=== PATIENT | female | born 1965 | race Hispanic/Latino ===

== ENCOUNTER 2021-01-21 17:35 | Inpatient (IN) | payer SELFPAY ==
[~2021-01-21] VITALS: Ht 152.4 cm; Wt 63.5 kg
[2021-01-21] MEDS ORDERED: ONDANSETRON ODT 4 MG TAB ONE (17:55)
[2021-01-21 18:03] LABS: APPEARANCE,URINE Clear (CLEAR); BILIRUBIN,URINE Negative (NEGATIVE); COLOR,URINE Yellow (YELLOW); GLUCOSE, URINE (UA) Negative (NEGATIVE); KETONES,URINE Negative (NEGATIVE); LEUKOCYTE ESTERASE ,URINE Trace (NEGATIVE); NITRATE,URINE Negative (NEGATIVE); OCCULT BLOOD,URINE Negative (NEGATIVE); PH,URINE 5.5 (5.0-8.0); PROTEIN,URINE Negative (NEGATIVE)
[2021-01-21 18:05] LABS: BASOPHILS % (AUTO) 0.2 % (0.0-5.0); HEMATOCRIT 45.2 % (36-48); LYMPHOCYTES % (AUTO) 8.2 % (21.0-51.0); MEAN CORPUSCULAR HEMOGLOBIN 29.4 pg (27.0-33.0); MEAN CORPUSCULAR HGB CONC 33.4 g/dL (32.0-36.0); MEAN CORPUSCULAR VOLUME 87.9 fL (79-99); MONOCYTES % (AUTO) 5.5 % (3.0-13.0); NEUTROPHILS % (AUTO) 85.5 % (40.0-77.0); PLATELET COUNT (AUTO) 271 K/uL (130-400); RED BLOOD CELL COUNT(AUTO) 5.14 MIL/uL (4.00-5.50); RED CELL DISTRIBUTION WIDTH 13.4 % (11.0-15.5); WHITE BLOOD COUNT (AUTO) 20.1 K/uL (4.8-10.8)
[2021-01-21 18:11] LABS: BACTERIA,URINE Rare /HPF (None Seen); RBC,URINE 0-1 /HPF (0-1); SQUAMOUS EPITHELIAL CELL,UR Few /HPF (0-2)
[2021-01-21 18:12] LABS: MUCUS,URINE Rare LPF (None Seen)
[2021-01-21 18:16] LABS: CREATININE 0.9 mg/dL (0.5-1.5); POTASSIUM 3.6 mmol/L (3.5-5.1)
[2021-01-21 18:20] LABS: ALBUMIN 3.9 g/dL (3.5-5.0); BILIRUBIN,TOTAL 0.9 mg/dL (0.2-1.0); TOTAL PROTEIN, SERUM 8.2 g/dL (6.0-8.3)
[2021-01-21] MEDS ORDERED: KETOROLAC TROMETHAMINE 30MG/ML ONE (18:31)
[2021-01-21] MEDS ORDERED: LACTATED RINGERS 1000ML 1,000 ML IV ONE (18:51)
[2021-01-21] MEDS ORDERED: ZOSYN 3.375GM+NS 50ML 50 ML IV ONE (18:51)
[2021-01-21] MEDS ORDERED: FENTANYL CITRATE PF 50 MCG/1 ML 2ML VIAL ONE (20:17)
[2021-01-22] VITALS (7 sets, daily range): BP systolic 133–153; BP diastolic 68–95
[2021-01-22] MEDS: SODIUM CHLORIDE 0.9% 1000ML 1,000 ML IV SCH ×3 (01:20→18:37)
[2021-01-22] MEDS: ONDANSETRON HCL 4 MG/2 ML VIAL IV PRN ×2 (01:49→08:47)
[2021-01-22] MEDS: MEPERIDINE-PF 25 MG/ML SYG IV PRN ×3 (01:50→18:09)
[2021-01-22] MEDS: ZOSYN 3.375GM+NS 50ML 50 ML IV SCH ×3 (03:05→18:08)
[2021-01-22 05:35] LABS: BASOPHILS % (AUTO) 0.2 % (0.0-5.0); HEMATOCRIT 41.4 % (36-48); LYMPHOCYTES % (AUTO) 5.3 % (21.0-51.0); MEAN CORPUSCULAR HEMOGLOBIN 28.5 pg (27.0-33.0); MEAN CORPUSCULAR HGB CONC 32.1 g/dL (32.0-36.0); MEAN CORPUSCULAR VOLUME 88.7 fL (79-99); MONOCYTES % (AUTO) 5.2 % (3.0-13.0); NEUTROPHILS % (AUTO) 88.6 % (40.0-77.0); PLATELET COUNT (AUTO) 253 K/uL (130-400); RED BLOOD CELL COUNT(AUTO) 4.67 MIL/uL (4.00-5.50); RED CELL DISTRIBUTION WIDTH 13.5 % (11.0-15.5); WHITE BLOOD COUNT (AUTO) 25.4 K/uL (4.8-10.8)
[2021-01-22 05:59] LABS: ALBUMIN 3.2 g/dL (3.5-5.0); BILIRUBIN,TOTAL 1.1 mg/dL (0.2-1.0); CREATININE 0.8 mg/dL (0.5-1.5); POTASSIUM 3.5 mmol/L (3.5-5.1); TOTAL PROTEIN, SERUM 7.1 g/dL (6.0-8.3)
[2021-01-22] MEDS: FAMOTIDINE/PF 20 MG/2 ML VIAL IV SCH ×2 (08:45→21:03)
[2021-01-22] MEDS ORDERED: LIDOCAINE HCL-MPF 1% 2ML VIAL IV PRN ×2 (18:15)
[2021-01-22] MEDS ORDERED: POTASSIUM CHLORIDE 20MEQ/100ML 100 ML IV PRN ×2 (18:15)
[2021-01-22] MEDS ORDERED: POTASSIUM CHLORIDE 10% ELIXIR 20 MEQ/15 ML UDCUP PO PRN (18:15)
[2021-01-22] MEDS: POTASSIUM CHLORIDE 20 MEQ ERTAB PO PRN (21:07)
[2021-01-23] MEDS: MEPERIDINE-PF 25 MG/ML SYG IV PRN (02:39)
[2021-01-23] MEDS: ONDANSETRON HCL 4 MG/2 ML VIAL IV PRN (02:40)
[2021-01-23] MEDS: POTASSIUM CHLORIDE 20 MEQ ERTAB PO PRN ×3 (02:40→15:48)
[2021-01-23] MEDS: ZOSYN 3.375GM+NS 50ML 50 ML IV SCH ×3 (02:42→18:35)
[2021-01-23] MEDS ORDERED: HYDROMORPHONE HCL 0.5 MG/0.5 ML ML ONE ×2 (03:31→06:54)
[2021-01-23 03:39] VITALS: BP 143/85
[2021-01-23] MEDS: SODIUM CHLORIDE 0.9% 1000ML 1,000 ML IV SCH ×2 (04:44→15:41)
[2021-01-23 06:09] LABS: BASOPHILS % (AUTO) 0.3 % (0.0-5.0); EOSINOPHILS % (AUTO) 0.1 % (0.0-8.0); HEMATOCRIT 38.9 % (36-48); LYMPHOCYTES % (AUTO) 3.3 % (21.0-51.0); MEAN CORPUSCULAR HEMOGLOBIN 29.1 pg (27.0-33.0); MEAN CORPUSCULAR HGB CONC 32.6 g/dL (32.0-36.0); MONOCYTES % (AUTO) 4.6 % (3.0-13.0); NEUTROPHILS % (AUTO) 87.6 % (40.0-77.0); PLATELET COUNT (AUTO) 209 K/uL (130-400); RED BLOOD CELL COUNT(AUTO) 4.37 MIL/uL (4.00-5.50); RED CELL DISTRIBUTION WIDTH 13.5 % (11.0-15.5); WHITE BLOOD COUNT (AUTO) 27.7 K/uL (4.8-10.8)
[2021-01-23 06:14] LABS: CREATININE 0.5 mg/dL (0.5-1.5); POTASSIUM 3.6 mmol/L (3.5-5.1)
[2021-01-23] MEDS ORDERED: HYDROMORPHONE HCL 0.5 MG/0.5 ML ML IVP SCH (06:45)
[2021-01-23] MEDS: FAMOTIDINE/PF 20 MG/2 ML VIAL IV SCH ×2 (08:47→20:50)
[2021-01-23 10:30] VITALS: BP 151/84
[2021-01-23 12:00] VITALS: BP 148/85
[2021-01-23] MEDS: HYDROMORPHONE 1 MG/1 ML AMP IVP PRN ×2 (13:19→18:40)
[2021-01-23 17:09] VITALS: BP 154/87
[2021-01-23] MEDS ORDERED: LIDOCAINE PF 2% 5ML ABBOJECT ONE (17:58)
[2021-01-23] MEDS ORDERED: DEXAMETHASONE SOD PHOSPHATE 10MG/ML 1ML VIAL ONE (17:58)
[2021-01-23] MEDS ORDERED: MIDAZOLAM HCL 1 MG/ML 2ML VIAL ONE (17:58)
[2021-01-23] MEDS ORDERED: SUCCINYLCHOLINE CHLORIDE 20 MG/ML 10 ML VIAL ONE (17:58)
[2021-01-23] MEDS ORDERED: PROPOFOL 10 MG/ML 20ML VIAL IV ONE (17:59)
[2021-01-23] MEDS ORDERED: GLYCOPYRROLATE 1 MG/5 ML SYRINGE ONE (17:59)
[2021-01-23] MEDS ORDERED: ONDANSETRON HCL 4 MG/2 ML VIAL ONE (17:59)
[2021-01-23] MEDS ORDERED: ROCURONIUM 10MG/1ML SYR 10 MG/ML ML ONE (18:00)
[2021-01-23] MEDS ORDERED: FENTANYL CITRATE PF 50 MCG/1 ML 2ML VIAL ONE (18:00)
[2021-01-23 20:00] VITALS: BP 154/82
[2021-01-24] VITALS (25 sets, daily range): BP systolic 128–158; BP diastolic 74–98
[2021-01-24] MEDS: SODIUM CHLORIDE 0.9% 1000ML 1,000 ML IV SCH ×4 (00:04→23:29)
[2021-01-24] MEDS: HYDROMORPHONE HCL 2 MG/ML VIAL IVP PRN ×2 (00:04→21:53)
[2021-01-24] MEDS: ZOSYN 3.375GM+NS 50ML 50 ML IV SCH ×4 (03:53→18:28)
[2021-01-24] MEDS: HYDROMORPHONE 1 MG/1 ML AMP IVP PRN ×2 (04:55→16:33)
[2021-01-24 05:56] LABS: BASOPHILS % (AUTO) 0.2 % (0.0-5.0); HEMATOCRIT 36.9 % (36-48); LYMPHOCYTES % (AUTO) 5.8 % (21.0-51.0); MEAN CORPUSCULAR HEMOGLOBIN 28.4 pg (27.0-33.0); MEAN CORPUSCULAR VOLUME 88.9 fL (79-99); MONOCYTES % (AUTO) 5.8 % (3.0-13.0); PLATELET COUNT (AUTO) 206 K/uL (130-400); RED BLOOD CELL COUNT(AUTO) 4.15 MIL/uL (4.00-5.50); RED CELL DISTRIBUTION WIDTH 13.5 % (11.0-15.5); WHITE BLOOD COUNT (AUTO) 24.2 K/uL (4.8-10.8)
[2021-01-24 06:05] LABS: CREATININE 0.6 mg/dL (0.5-1.5); POTASSIUM 3.4 mmol/L (3.5-5.1)
[2021-01-24] MEDS ORDERED: BUPIVACAINE/EPI/PF 0.5% 30ML VIAL IJ ONE (10:50)
[2021-01-24] MEDS ORDERED: MEPERIDINE-PF 25 MG/ML SYG ONE ×2 (11:34→11:45)
[2021-01-24] MEDS: FAMOTIDINE/PF 20 MG/2 ML VIAL IV SCH ×2 (12:42→20:23)
[2021-01-24] MEDS: POTASSIUM CHLORIDE 20 MEQ ERTAB PO PRN ×2 (16:29→20:56)
[2021-01-25] VITALS (7 sets, daily range): BP systolic 118–166; BP diastolic 73–106
[2021-01-25] MEDS: ZOSYN 3.375GM+NS 50ML 50 ML IV SCH ×3 (02:25→19:56)
[2021-01-25 05:57] LABS: MEAN CORPUSCULAR HEMOGLOBIN 29.2 pg (27.0-33.0); MEAN CORPUSCULAR HGB CONC 33.3 g/dL (32.0-36.0); MEAN CORPUSCULAR VOLUME 87.7 fL (79-99); RED BLOOD CELL COUNT(AUTO) 3.42 MIL/uL (4.00-5.50); RED CELL DISTRIBUTION WIDTH 13.7 % (11.0-15.5)
[2021-01-25 06:20] LABS: ALBUMIN 1.9 g/dL (3.5-5.0); BILIRUBIN,TOTAL 0.5 mg/dL (0.2-1.0); CREATININE 0.6 mg/dL (0.5-1.5); POTASSIUM 3.9 mmol/L (3.5-5.1); TOTAL PROTEIN, SERUM 5.6 g/dL (6.0-8.3)
[2021-01-25] MEDS: FAMOTIDINE/PF 20 MG/2 ML VIAL IV SCH ×2 (08:46→19:56)
[2021-01-25] MEDS: SODIUM CHLORIDE 0.9% 1000ML 1,000 ML IV SCH ×2 (09:54→19:56)
[2021-01-25] MEDS: HYDROMORPHONE HCL 2 MG/ML VIAL IVP PRN (09:55)
[2021-01-25] MEDS ORDERED: ACETAMINOPHEN-CODEINE 300/30MG TAB PO PRN (16:30)
[2021-01-25] MEDS ORDERED: HYDROMORPHONE 1 MG/1 ML AMP IVP PRN (16:45)
[2021-01-25] MEDS: LISINOPRIL 10 MG TABLET PO SCH (23:10)
[2021-01-26 04:02] VITALS: BP 131/84
[2021-01-26 05:18] LABS: BASOPHILS % (AUTO) 0.3 % (0.0-5.0); EOSINOPHILS % (AUTO) 0.9 % (0.0-8.0); MEAN CORPUSCULAR HEMOGLOBIN 28.2 pg (27.0-33.0); MEAN CORPUSCULAR HGB CONC 31.9 g/dL (32.0-36.0); MEAN CORPUSCULAR VOLUME 88.3 fL (79-99); MONOCYTES % (AUTO) 6.8 % (3.0-13.0); NEUTROPHILS % (AUTO) 68.9 % (40.0-77.0); PLATELET COUNT (AUTO) 223 K/uL (130-400); RED BLOOD CELL COUNT(AUTO) 3.51 MIL/uL (4.00-5.50); RED CELL DISTRIBUTION WIDTH 13.7 % (11.0-15.5); WHITE BLOOD COUNT (AUTO) 14.9 K/uL (4.8-10.8)
[2021-01-26] MEDS: ZOSYN 3.375GM+NS 50ML 50 ML IV SCH ×2 (05:24→12:13)
[2021-01-26] MEDS: SODIUM CHLORIDE 0.9% 1000ML 1,000 ML IV SCH (05:32)
[2021-01-26 05:51] LABS: ALBUMIN 1.9 g/dL (3.5-5.0); BILIRUBIN,TOTAL 0.3 mg/dL (0.2-1.0); CREATININE 0.6 mg/dL (0.5-1.5); POTASSIUM 3.1 mmol/L (3.5-5.1); TOTAL PROTEIN, SERUM 5.3 g/dL (6.0-8.3)
[2021-01-26] MEDS: POTASSIUM CHLORIDE 20 MEQ ERTAB PO PRN ×2 (06:17→13:47)
[2021-01-26] MEDS: LISINOPRIL 10 MG TABLET PO SCH (08:07)
[2021-01-26] MEDS: FAMOTIDINE/PF 20 MG/2 ML VIAL IV SCH (08:07)
[2021-01-26 08:22] VITALS: BP 168/89
[2021-01-26 11:00] VITALS: BP 150/83
[2021-01-26] MEDS ORDERED: LISI10TA24 PO (16:02)
[2021-01-26 17:01] VITALS: BP 174/87
== END 2021-01-26 17:55 | disposition home or self-care (01) | DRG 418 ==
LOC: EDH 17:35 → EDHIP 17:36 → 3DH 01-22 00:07
PROVIDERS: ADMIT Internal Medicine; ATTEND Internal Medicine
PROC: 0FT44ZZ Resection of Gallbladder, Percutaneous Endoscopic Approach (ICD-10-PCS; principal; 2021-01-24 10:05)
DX: K80.00 Calculus of gallbladder with acute cholecystitis without obstruction (principal); K82.1 Hydrops of gallbladder; E89.0 Postprocedural hypothyroidism; E04.2 Nontoxic multinodular goiter; K76.0 Fatty (change of) liver, not elsewhere classified; K82.A1 Gangrene of gallbladder in cholecystitis
CPT/HCPCS: 36415; 76536; 76705; 78226; 80048; 80053; 80061; 81001; 82150; 83690; 84145; 84443; 85025; 85027; 87040; 93005; A9537; G0378; J0330; J1100; J1170; J1885; J2001; J2175; J2250; J2405; J2543; J2704; J3010; J3490; J7030; J7120